=== PATIENT | female | born 1975 | race Caucasian/White ===

== ENCOUNTER → 2018-01-05 | Outpatient (CLI) | payer OTHER ==
[~2018-01-05] MED LIST: IBUPROFEN 800800 M1 PO; MEDROLDOSEPACK PO; NORFLEX100 MG PO; PRILOSEC40 MG PO; QVAR HFA 880 MCG/UN1 INH; VENTOLIN HFA 1818 GM INH
== END ==
LOC: M.CT 10:24
DX: J01.00 Acute maxillary sinusitis, unspecified (principal); J01.20 Acute ethmoidal sinusitis, unspecified; J32.8 Other chronic sinusitis

== ENCOUNTER → 2018-09-25 | Outpatient (CLI) | payer OTHER | LOC: M.RAD 07:59 | DX: Z12.31 Encounter for screening mammogram for malignant neoplasm of breast (principal) ==

== ENCOUNTER → 2018-10-23 | Outpatient (CLI) | payer OTHER | LOC: M.RAD 15:17 | DX: S69.91XA Unspecified injury of right wrist, hand and finger(s), initial encounter (principal); M79.89 Other specified soft tissue disorders; X58.XXXA Exposure to other specified factors, initial encounter; Y93.89 Activity, other specified; Y92.89 Other specified places as the place of occurrence of the external cause; Y99.8 Other external cause status ==

== ENCOUNTER → 2019-09-16 | Outpatient (CLI) | payer OTHER ==
[2019-09-16 09:02] LABS: ABSOLUTE BASOPHILS 0.1 thou/uL (0.0-0.2); ABSOLUTE EOSINOPHILS 0.2 thou/uL (0.0-0.7); ABSOLUTE LYMPHOCYTES 2.5 thou/uL (0.8-5.3); ABSOLUTE MONOCYTES 0.5 thou/uL (0.0-1.2); ABSOLUTE NEUTROPHILS 8.2 thou/uL (1.6-8.1); EOSINOPHILS 1.7 %; HEMOGLOBIN 13.6 gm/dL (12.0-15.0); LYMPHOCYTES 21.6 %; MCH 25.9 pg (26.0-34.0); MCHC 32.3 g/dL (28.0-37.0); MONOCYTES 4.2 %; MPV 8.2 fl. (7.2-11.1); NUCLEATED RBCS 0 /100WBC; PLATELET COUNT* 263 thou/uL (150-400); POLYS 71.5 %; RBC 5.24 mil/uL (4.20-5.00); RDW-CV 14.5 % (10.5-14.5); WBC 11.5 thou/uL (4.0-11.0)
[2019-09-16 09:33] LABS: ALBUMIN 3.5 g/dL (3.4-5.0); ALKALINE PHOSPHATASE 107 U/L (46-116); ANION GAP 6 mmol/L (7-16); BUN 11 mg/dL (7-18); CALCIUM 8.6 mg/dL (8.5-10.1); CHLORIDE 104 mmol/L (98-107); CHOLESTEROL 234 mg/dL (<200); CO2 28 mmol/L (21-32); CREATININE 1.2 mg/dL (0.6-1.3); GLUCOSE 94 mg/dL (70-99); HDL CHOLESTEROL 45 mg/dL (>40); LDL CHOLESTEROL 177 mg/dL (<100); POTASSIUM 4.2 mmol/L (3.5-5.1); SGOT 16 U/L (15-37); SGPT 22 U/L (30-65); SODIUM 138 mmol/L (136-145); TC:HDL 5.2 Ratio (Not establshd); TOTAL BILIRUBIN 0.4 mg/dL (<0.1-1.0); TOTAL PROTEIN 7.3 g/dL (6.4-8.2); TRIGLYCERIDE 62 mg/dL (<150); VLDL 12 mg/dL (<40)
[2019-09-16 09:34] LABS: SERUM ASSESSMENT Clear
== END ==
LOC: M.LAB 07:37
PROVIDERS: Specialist
DX: Z01.419 Encounter for gynecological examination (general) (routine) without abnormal findings (principal); K21.9 Gastro-esophageal reflux disease without esophagitis

== ENCOUNTER → 2019-10-25 | Outpatient (CLI) | payer OTHER | LOC: M.RAD 06:38 | DX: Z12.31 Encounter for screening mammogram for malignant neoplasm of breast (principal) ==

== ENCOUNTER → 2020-08-20 | Outpatient (CLI) | payer OTHER ==
[2020-08-20 09:52] LABS: CHOLESTEROL 229 mg/dL (<200); HDL CHOLESTEROL 55 mg/dL (>40); LDL CHOLESTEROL 162 mg/dL (<100); TC:HDL 4.2 Ratio (Not establshd); TRIGLYCERIDE 60 mg/dL (<150); VLDL 12 mg/dL (<40)
[2020-08-20 09:53] LABS: SERUM ASSESSMENT Clear
== END ==
LOC: M.LAB 06:55
PROVIDERS: ATTEND Family Medicine
DX: E78.00 Pure hypercholesterolemia, unspecified (principal)

== ENCOUNTER → 2020-09-01 | Outpatient (CLI) | payer OTHER | LOC: M.CT 06:58 | PROVIDERS: ATTEND Family Medicine | DX: E78.00 Pure hypercholesterolemia, unspecified (principal) ==

== ENCOUNTER → 2020-11-11 | Outpatient (CLI) | payer OTHER | LOC: M.RAD 06:49 | PROVIDERS: ATTEND Family Medicine | DX: Z12.31 Encounter for screening mammogram for malignant neoplasm of breast (principal) ==

== ENCOUNTER → 2020-11-25 | Outpatient (CLI) | payer OTHER ==
[2020-11-25 08:04] LABS: ALBUMIN 3.4 g/dL (3.4-5.0); ALKALINE PHOSPHATASE 116 U/L (46-116); ANION GAP 8 mmol/L (7-16); BUN 9 mg/dL (7-18); CALCIUM 8.4 mg/dL (8.5-10.1); CHLORIDE 105 mmol/L (98-107); CHOLESTEROL 181 mg/dL (<200); CO2 29 mmol/L (21-32); GLUCOSE 86 mg/dL (70-99); HDL CHOLESTEROL 55 mg/dL (>40); LDL CHOLESTEROL 118 mg/dL (<100); POTASSIUM 4.2 mmol/L (3.5-5.1); SGOT 7 U/L (15-37); SGPT 18 U/L (30-65); SODIUM 142 mmol/L (136-145); TC:HDL 3.3 Ratio (Not establshd); TOTAL BILIRUBIN 0.4 mg/dL (<0.1-1.0); TOTAL PROTEIN 6.4 g/dL (6.4-8.2); TRIGLYCERIDE 42 mg/dL (<150); VLDL 8 mg/dL (<40)
[2020-11-25 08:05] LABS: SERUM ASSESSMENT Clear
== END ==
LOC: M.LAB 07:20
PROVIDERS: ATTEND Family Medicine
DX: E78.49 Other hyperlipidemia (principal)

== ENCOUNTER 2021-02-20 10:59 | Emergency (ER) | payer OTHER ==
[~2021-02-20] VITALS: Ht 162.6 cm; Wt 104.3 kg
[2021-02-20] MEDS ORDERED: ZYRTEC10 M5 PO (11:08)
[2021-02-20] MEDS ORDERED: SYMBICORT160 MCG/4. INH (11:08)
[2021-02-20] MEDS ORDERED: LIPITOR10 MG PO (11:08)
[2021-02-20] MEDS ORDERED: AUGMENTIN 875-1 EACH PO ×2 (11:35→11:43)
[2021-02-20 11:50] VITALS: BP 142/90
== END 2021-02-20 11:51 | disposition home or self-care (01) ==
LOC: M.ERS 10:59
DX: K11.20 Sialoadenitis, unspecified (principal); K21.9 Gastro-esophageal reflux disease without esophagitis; J45.909 Unspecified asthma, uncomplicated; Z88.8 Allergy status to other drugs, medicaments and biological substances

== ENCOUNTER → 2021-03-03 | Outpatient (CLI) | payer OTHER ==
[~2021-03-03] MED LIST changes: +AUGMENTIN 875-1 EACH PO; +LIPITOR10 MG PO; +SYMBICORT160 MCG/4. INH; +ZYRTEC10 M5 PO
== END ==
LOC: M.ULTRA 13:44
PROVIDERS: ATTEND Nurse Practitioner
DX: M79.89 Other specified soft tissue disorders (principal); R22.1 Localized swelling, mass and lump, neck; R22.0 Localized swelling, mass and lump, head; K11.20 Sialoadenitis, unspecified; R22.9 Localized swelling, mass and lump, unspecified

== ENCOUNTER → 2021-03-11 | Outpatient (CLI) | payer OTHER | LOC: M.CT 12:37 | PROVIDERS: ATTEND Nurse Practitioner | DX: R22.1 Localized swelling, mass and lump, neck (principal); R22.0 Localized swelling, mass and lump, head ==

== ENCOUNTER → 2021-10-18 | Outpatient (CLI) | payer OTHER ==
--- NOTE | 2021-10-18 14:08 | 2DMMODE ---
[place] [address] 2 D/M-MODE ECHOCARDIOGRAM Name: ANASTACIOCELINAMiriam SEGURA Room: [facility]#: [id number] Admission: 10/18/21 Attend Phys: Kristyn Marquez RN Discharge: Date of : 73 Date of Service: 10/18/21 1408 Report #: [id number] THIS REPORT FOR: cc: Colleen Vides,Colleen Reed,Jignesh Mariscal MD [facility] ~ APPROVED REPORT Study performed: 10/18/2021 13:58:33 EXAM: Comprehensive 2D, Doppler, and color-flow Echocardiogram Patient Location: Out-Patient BSA: 2.11 HR: 71 bpm BP: 120/70 mmHg Other Information Study Quality: Good Indications Dyspnea 2D Dimensions IVSd: 8.95 (7-11mm) LVOT Diam: 20.08 (18-24mm) LVDd: 40.25 mm PWd: 8.08 (7-11mm) Ascending Ao: 34.90 (22-36mm) LVDs: 22.97 (25-40mm) Aortic Root: 25.46 mm Volumes Left Atrial Volume (Systole) LA ESV Index: 11.50 mL/m2 Aortic Valve AoV Peak Marcus.: 1.90 m/s AO Peak Gr.: 14.45 mmHg LVOT Max P.69 mmHg AO Mean Gr.: 8.04 mmHg LVOT Mean P.54 mmHg LVOT Max V: 1.19 m/s AO V2 VTI: 35.87 cm LVOT Mean V: 0.72 m/s GREER (VTI): 2.49 cm2 LVOT V1 VTI: 28.16 cm Mitral Valve E/A Ratio: 1.52 [place] [address] 2 D/M-MODE ECHOCARDIOGRAM Name: CELINA CHAVES Room: [facility]#: [id number] Admission: 10/18/21 Attend Phys: Kristyn Marquez RN Discharge: Date of : 73 Date of Service: 10/18/21 1408 Report #: [id number] MV Decel. Time: 165.76 ms MV E Max Marcus.: 1.06 m/s MV PHT: 48.07 ms MVA (PHT): 4.58 cm2 TDI E/Lateral E': 7.07 E/Medial E': 10.60 Medial E' Marcus.: 0.10 m/s Lateral E' Marcus.: 0.15 m/s Pulmonary Valve PV Peak Marcus.: 0.90 m/s PV Peak Gr.: 3.23 mmHg Tricuspid Valve RAP Estimate: 5.00 mmHg TR Peak Gr.: 32.16 mmHg RVSP: 37.16 mmHg PA Pressure: 37.16 mmHg Left Ventricle The left ventricle is normal size. There is normal LV segmental wall motion. There is normal left ventricular wall thickness. Left ventricular systolic function is normal. The left ventricular ejection fraction is within the normal range. LVEF is 60-65%. The left ventricular diastolic function is normal. Right Ventricle The right ventricle is normal size. The right ventricular systolic function is normal. Atria The left atrium size is normal. The right atrium size is normal. Aortic Valve The aortic valve is normal in structure. No aortic regurgitation is present. There is no aortic valvular stenosis. Mitral Valve The mitral valve is normal in structure. There is no mitral valve regurgitation noted. No evidence of mitral valve stenosis. Tricuspid Valve The tricuspid valve is normal in structure. Mild tricuspid regurgitation estimated pa pressure 40 [place] [address] 2 D/M-MODE ECHOCARDIOGRAM Name: CELINA CHAVES Room: [facility]#: [id number] Admission: 10/18/21 Attend Phys: Kristyn Marquez RN Discharge: Date of : 73 Date of Service: 10/18/21 1408 Report #: [id number] The pulmonary valve is normal in structure. There is no pulmonic valvular regurgitation. Great Vessels The aortic root is normal in size. IVC is normal in size and collapses >50% with inspiration. Pericardium There is no pericardial effusion. <Conclusion> LVEF is 60-65%. Mild tricuspid regurgitation estimated pa pressure 40 mm Hg <ELECTRONICALLY SIGNED> By: Jignesh Palacios MD, FACC 10/18/21 1408 1408 1408 Jignesh Palacios MD, FACC /INF
== END ==
LOC: M.CRD 12:42
PROVIDERS: ATTEND Registered Nurse
DX: I37.1 Nonrheumatic pulmonary valve insufficiency (principal)

== ENCOUNTER → 2021-11-01 | Outpatient (CLI) | payer OTHER ==
[2021-11-01 06:55] LABS: CREATININE 1.1 mg/dL (0.6-1.3)
== END ==
LOC: M.LAB 10-26 08:06 → M.CT 13:00
PROVIDERS: ATTEND Registered Nurse
DX: R91.8 Other nonspecific abnormal finding of lung field (principal); I71.2 Thoracic aortic aneurysm, without rupture; I27.20 Pulmonary hypertension, unspecified

== ENCOUNTER → 2021-12-10 | Outpatient (CLI) | payer OTHER ==
[2021-12-10 08:24] LABS: ALBUMIN 3.5 g/dL (3.4-5.0); ALKALINE PHOSPHATASE 115 U/L (46-116); ANION GAP 9 mmol/L (7-16); BUN 11 mg/dL (7-18); CALCIUM 8.8 mg/dL (8.5-10.1); CHLORIDE 107 mmol/L (98-107); CHOLESTEROL 186 mg/dL (<200); CO2 26 mmol/L (21-32); CREATININE 1.1 mg/dL (0.6-1.3); GLUCOSE 96 mg/dL (70-99); HDL CHOLESTEROL 57 mg/dL (>40); LDL CHOLESTEROL 121 mg/dL (<100); POTASSIUM 4.3 mmol/L (3.5-5.1); SGOT 14 U/L (15-37); SGPT 15 U/L (30-65); SODIUM 142 mmol/L (136-145); TC:HDL 3.3 Ratio (Not establshd); TOTAL BILIRUBIN 0.4 mg/dL (<0.1-1.0); TOTAL PROTEIN 7.3 g/dL (6.4-8.2); TRIGLYCERIDE 41 mg/dL (<150); VLDL 8 mg/dL (<40)
[2021-12-10 08:26] LABS: SERUM ASSESSMENT CLEAR
== END ==
LOC: M.LAB 07:08
PROVIDERS: ATTEND Family Medicine
DX: Z12.31 Encounter for screening mammogram for malignant neoplasm of breast (principal); M77.31 Calcaneal spur, right foot; M79.89 Other specified soft tissue disorders; E78.2 Mixed hyperlipidemia

== ENCOUNTER → 2021-12-17 | Outpatient (CLI) | payer OTHER ==
[2021-12-17 10:27] LABS: ABSOLUTE BASOPHILS 0.1 thou/uL (0.0-0.2); ABSOLUTE EOSINOPHILS 0.2 thou/uL (0.0-0.7); ABSOLUTE LYMPHOCYTES 2.4 thou/uL (0.8-5.3); ABSOLUTE MONOCYTES 0.4 thou/uL (0.0-1.2); ABSOLUTE NEUTROPHILS 5.2 thou/uL (1.6-8.1); EOSINOPHILS 1.8 %; HEMATOCRIT 40.7 % (37.0-47.0); HEMOGLOBIN 13.3 gm/dL (12.0-15.0); MCH 27.2 pg (26.0-34.0); MCHC 32.6 g/dL (28.0-37.0); MCV 83.5 fL (80.0-100.0); MONOCYTES 4.9 %; MPV 7.4 fl. (7.2-11.1); NUCLEATED RBCS 0 /100WBC; PLATELET COUNT* 267 thou/uL (150-400); POLYS 63.3 %; RBC 4.87 mil/uL (4.20-5.00); RDW-CV 13.8 % (10.5-14.5); WBC 8.2 thou/uL (4.0-11.0)
== END ==
LOC: M.LAB 10:09
PROVIDERS: ATTEND Family Medicine
DX: N94.6 Dysmenorrhea, unspecified (principal); R53.82 Chronic fatigue, unspecified; R10.2 Pelvic and perineal pain

== ENCOUNTER → 2021-12-24 | Outpatient (CLI) | payer OTHER | LOC: M.ULTRA 09:52 | PROVIDERS: ATTEND Family Medicine | DX: N94.6 Dysmenorrhea, unspecified (principal); R10.2 Pelvic and perineal pain ==